=== PATIENT | female | born 1985 | race Hispanic/Latino ===

== ENCOUNTER → 2021-06-10 10:12 | Outpatient (CLI) | payer OTHER, SELFPAY ==
[2021-06-10 12:51] LABS: HCG Quantitative /Beta subunit 16652 mIU/mL
[2021-06-11 08:13] LABS: Varicella IgG Antibody 299 index (Immune >165)
== END ==
PROVIDERS: Obstetrics & Gynecology; Referring Provider Obstetrics & Gynecology; Visit Provider Obstetrics & Gynecology
DX: O20.9 Hemorrhage in early pregnancy, unspecified (principal)
CPT/HCPCS: 36415; 84702; 86787

== ENCOUNTER → 2021-06-15 14:16 | Outpatient (CLI) | payer OTHER, SELFPAY ==
--- NOTE | 2021-06-15 14:17 | DI.US.S_ITS ---
PROCEDURE: US OB <= 14 WEEKS FETUS INDICATIONS: VIABILITY DATING OUTSIDE/PRIOR DATING DATA: Last menstrual period (LMP): April 23, 2021 LMP-based estimated date of delivery (MARY): January 28, 2022 First dating scan (date and location): June 25, 2021 Estimated date of delivery (MARY) from first dating scan: February 04, 2021 The calculations are made using the ultrasound MARY of February 04, 2021 TECHNIQUE: Real-time scanning was performed of the fetus and maternal pelvic organs, with image documentation. Endovaginal scanning was also performed to better visualize the fetus and maternal ovaries. COMPARISON: None. FINDINGS: Embryo: Single living intrauterine identified. The intrauterine is in the anterior margin of the lower uterine segment at scar. The is surrounded by only 2 millimeters of myometrium. Findings compatible with ectopic . pole measures 0.7 centimeters corresponding to ultrasound age of 6 weeks 4 days. Yolk sac is identified. Heart rate: 104 Maternal organs: Ovaries not well seen and cannot be evaluated. IMPRESSION: 1. Ectopic involving scar in the lower uterine segment. 2. Ordering physician Dr. Harris was not in his office at the time of this interpretation. Findings discussed with Marlys Velasco RN in the office of Dr. Gerardo Harris. Ms.Rath Velasco reported an understanding of the the urgent nature of the findings and will contact the office on-call poultry eviscerator with results. Dictated by: Iram Clark MD, PhD on 06/15/2021 at 14:53 Approved by: Iram Clark MD, PhD on 06/15/2021 at 15:07
== END ==
PROVIDERS: PCP Internal Medicine; Referring Provider Obstetrics & Gynecology; Visit Provider Obstetrics & Gynecology
DX: O00.80 Other ectopic pregnancy without intrauterine pregnancy
CPT/HCPCS: 76801; 76817

== ENCOUNTER → 2021-06-16 16:20 | Outpatient (CLI) | payer OTHER, SELFPAY ==
[2021-06-16 17:42] LABS: HCG Quantitative /Beta subunit 30624 mIU/mL
== END ==
PROVIDERS: PCP Internal Medicine; Referring Provider Obstetrics & Gynecology; Visit Provider Obstetrics & Gynecology
DX: O00.90 Unspecified ectopic pregnancy without intrauterine pregnancy (principal)
CPT/HCPCS: 36415; 84702

== ENCOUNTER → 2021-07-16 12:03 | Outpatient (CLI) | payer OTHER, SELFPAY ==
[2021-07-16 13:44] LABS: HCG Quantitative /Beta subunit 5.3 mIU/mL
== END ==
PROVIDERS: PCP Internal Medicine; Referring Provider Obstetrics & Gynecology; Visit Provider Obstetrics & Gynecology
DX: O00.90 Unspecified ectopic pregnancy without intrauterine pregnancy (principal)
CPT/HCPCS: 36415; 84702

== ENCOUNTER → 2021-11-20 15:00 | Outpatient (CLI) | payer OTHER, SELFPAY ==
[2021-11-20 17:05] LABS: Follicle Stimulating Hormone 6.52 mIU/mL; Luteinizing Hormone 4.97 mIU/mL
[2021-11-20 17:12] LABS: Prolactin 12.8 ng/mL (3.0-18.6)
[2021-11-20 17:35] LABS: TSH w/ Reflex to FT4 1.64 uIU/mL (0.47-4.68)
== END ==
PROVIDERS: PCP Internal Medicine; Referring Provider Obstetrics & Gynecology; Visit Provider Obstetrics & Gynecology
DX: N97.0 Female infertility associated with anovulation (principal)
CPT/HCPCS: 36415; 83001; 83002; 84146; 84443

== ENCOUNTER → 2022-01-28 17:36 | Outpatient (CLI) | payer OTHER, SELFPAY ==
[2022-01-28 18:25] LABS: HCG Quantitative /Beta subunit < 2.4 mIU/mL
== END ==
PROVIDERS: PCP Internal Medicine; Referring Provider Obstetrics & Gynecology; Visit Provider Obstetrics & Gynecology
DX: O20.9 Hemorrhage in early pregnancy, unspecified (principal); Z3A.01 Less than 8 weeks gestation of pregnancy
CPT/HCPCS: 36415; 84702; 86900; 86901

== ENCOUNTER → 2022-01-30 09:46 | Outpatient (CLI) | payer OTHER, SELFPAY ==
[2022-01-30 10:47] LABS: HCG Quantitative /Beta subunit < 2.4 mIU/mL
== END ==
PROVIDERS: PCP Internal Medicine; Referring Provider Obstetrics & Gynecology; Visit Provider Obstetrics & Gynecology
DX: O20.9 Hemorrhage in early pregnancy, unspecified (principal)
CPT/HCPCS: 36415; 84702

== ENCOUNTER → 2022-03-08 11:50 | Outpatient (CLI) | payer OTHER, SELFPAY ==
[2022-03-08 16:15] LABS: Follicle Stimulating Hormone 6.17 mIU/mL; Progesterone, Total 0.74 ng/mL
[2022-03-15 03:57] LABS: Anti Mullerian Hormone 2.75 ng/mL (.)
== END ==
PROVIDERS: PCP Internal Medicine; Referring Provider Obstetrics & Gynecology; Visit Provider Obstetrics & Gynecology
DX: N97.0 Female infertility associated with anovulation (principal)
CPT/HCPCS: 36415; 82397; 83001; 84144

== ENCOUNTER → 2022-03-29 14:58 | Outpatient (CLI) | payer OTHER, SELFPAY ==
[2022-03-29 17:37] LABS: Progesterone, Total 9.37 ng/mL
== END ==
PROVIDERS: PCP Internal Medicine; Referring Provider Obstetrics & Gynecology; Visit Provider Obstetrics & Gynecology
DX: N97.0 Female infertility associated with anovulation (principal)
CPT/HCPCS: 36415; 84144

== ENCOUNTER → 2022-06-24 16:22 | Outpatient (CLI) | payer OTHER, SELFPAY ==
[2022-06-24 18:20] LABS: HCG Quantitative /Beta subunit 14296 mIU/mL
== END ==
PROVIDERS: PCP Internal Medicine; Referring Provider Obstetrics & Gynecology; Visit Provider Obstetrics & Gynecology
DX: N97.0 Female infertility associated with anovulation (principal)
CPT/HCPCS: 36415; 84144; 84702

== ENCOUNTER → 2022-07-02 13:40 | Outpatient (CLI) | payer OTHER, SELFPAY | PROVIDERS: PCP Internal Medicine; Referring Provider Obstetrics & Gynecology; Visit Provider Obstetrics & Gynecology | DX: O09.299 Supervision of pregnancy with other poor reproductive or obstetric history, unspecified trimester (principal) | CPT/HCPCS: 36415; 84144 ==

== ENCOUNTER → 2022-07-06 08:36 | Outpatient (CLI) | payer OTHER, SELFPAY ==
--- NOTE | 2022-07-06 08:37 | DI.US.S_ITS ---
PROCEDURE: US OB <= 14 WEEKS FETUS INDICATIONS: History of early loss OUTSIDE/PRIOR DATING DATA: Last menstrual period (LMP): Unknown. LMP-based estimated date of delivery (MARY): Unknown First dating scan (date and location): 06/29/2022 Estimated date of delivery (MARY) from first dating scan: 02/23/2023. TECHNIQUE: Real-time scanning was performed of the fetus and maternal pelvic organs, with image documentation. COMPARISON: [facility], , OB <= 14 WEEKS FETUS, 06/15/2021, 14:27. FINDINGS: Embryo: Very retroverted uterus is noted on the current study with a single intrauterine gestational sac and possible yolk sac seen. No pole is identified. Gestational sac measures 1.5 cm with estimated gestational age of 6 weeks, 2 days. Maternal organs: Right ovary is visualized and contains a possible corpus luteal cyst. Left ovary is not visualized on this study. IMPRESSION: 1. Limited evaluation due to retroverted uterus. Possible intrauterine gestational sac and yolk sac as above. pole or cardiac activity is not detected on this study. Clinical correlation and sonographic follow-up is recommended for evaluation of viability. We strive to produce accurate, complete, and clear reports of imaging services. To assist us in improving patient care, this report was composed using standard report templates and voice recognition software. Therefore, it may contain abnormal punctuation, insertions and/or omissions. Occasional wrong-word or sound-alike substitutions may occur. Though we review the report and make efforts to correct it, we do recommend that the report be read carefully in proper context to recognize any text inaccuracies. Dictated by: Bud Duarte M.D. on 07/06/2022 at 10:01 Approved by: Bud Duarte M.D. on 07/06/2022 at 10:06
== END ==
PROVIDERS: PCP Internal Medicine; Referring Provider Obstetrics & Gynecology; Visit Provider Obstetrics & Gynecology
DX: O09.291 Supervision of pregnancy with other poor reproductive or obstetric history, first trimester (principal); Z3A.01 Less than 8 weeks gestation of pregnancy
CPT/HCPCS: 76801; 76817

== ENCOUNTER → 2022-07-16 10:23 | Outpatient (CLI) | payer OTHER, SELFPAY ==
[2022-07-16 12:56] LABS: HCG Quantitative /Beta subunit 19244 mIU/mL
== END ==
PROVIDERS: PCP Internal Medicine; Referring Provider Obstetrics & Gynecology; Visit Provider Obstetrics & Gynecology
DX: O09.299 Supervision of pregnancy with other poor reproductive or obstetric history, unspecified trimester (principal)
CPT/HCPCS: 36415; 84702

== ENCOUNTER → 2022-07-19 16:25 | Outpatient (CLI) | payer OTHER, SELFPAY ==
[2022-07-19 19:12] LABS: HCG Quantitative /Beta subunit 14573 mIU/mL
== END ==
PROVIDERS: PCP Internal Medicine; Referring Provider Obstetrics & Gynecology; Visit Provider Obstetrics & Gynecology
DX: O09.299 Supervision of pregnancy with other poor reproductive or obstetric history, unspecified trimester (principal); O20.9 Hemorrhage in early pregnancy, unspecified; Z3A.00 Weeks of gestation of pregnancy not specified
CPT/HCPCS: 36415; 84702

== ENCOUNTER → 2022-07-20 06:40 | Outpatient (CLI) | payer OTHER, SELFPAY ==
--- NOTE | 2022-07-20 06:41 | DI.US.S_ITS ---
PROCEDURE: US OB <= 14 WEEKS FETUS INDICATIONS: check viability OUTSIDE/PRIOR DATING DATA: Last menstrual period (LMP): Unknown. LMP-based estimated date of delivery (MARY): Unknown. First dating scan (date and location): 06/29/2022. Estimated date of delivery (MARY) from first dating scan: 02/23/2023. The calculations are made using the working MARY of a 1623. TECHNIQUE: Real-time scanning was performed of the fetus and maternal pelvic organs, with image documentation. Endovaginal scanning was also performed to better visualize the fetus and maternal ovaries. COMPARISON: [facility], , OB <= 14 WEEKS FETUS, 07/06/2022, 8:49. FINDINGS: Embryo: Single intrauterine gestational sac is seen . No definite pole or yolk sac is seen. Decidual sac measures 1.6 cm in length with estimated gestational age based on current study of 6 weeks, 3 days. Estimated gestational age based on previous study 8 weeks, 6 days. No cardiac activity is detected. Maternal organs: Possible corpus luteum is noted in right ovary unchanged from prior study. Left ovary is within normal limits. IMPRESSION: 1. Single intrauterine gestational sac without pole or cardiac activity. Finding is concerning for blighted ovum. Correlation with serial beta HCG level is recommended. 2. Possible corpus luteum within right ovary. We strive to produce accurate, complete, and clear reports of imaging services. To assist us in improving patient care, this report was composed using standard report templates and voice recognition software. Therefore, it may contain abnormal punctuation, insertions and/or omissions. Occasional wrong-word or sound-alike substitutions may occur. Though we review the report and make efforts to correct it, we do recommend that the report be read carefully in proper context to recognize any text inaccuracies. Dictated by: Bud Duarte M.D. on 07/20/2022 at 11:22 Approved by: Bud Duarte M.D. on 07/20/2022 at 11:24
== END ==
PROVIDERS: PCP Internal Medicine; Referring Provider Obstetrics & Gynecology; Visit Provider Obstetrics & Gynecology
DX: O36.80X0 Pregnancy with inconclusive fetal viability, not applicable or unspecified (principal); O09.299 Supervision of pregnancy with other poor reproductive or obstetric history, unspecified trimester; N97.0 Female infertility associated with anovulation; O26.20 Pregnancy care for patient with recurrent pregnancy loss, unspecified trimester
CPT/HCPCS: 76801; 76817

== ENCOUNTER → 2023-01-31 15:04 | Outpatient (CLI) | payer OTHER, SELFPAY ==
[2023-01-31 16:23] LABS: HCG Quantitative /Beta subunit 14970 mIU/mL
== END ==
PROVIDERS: PCP Internal Medicine; Referring Provider Obstetrics & Gynecology; Visit Provider Obstetrics & Gynecology
DX: O09.299 Supervision of pregnancy with other poor reproductive or obstetric history, unspecified trimester (principal); N91.2 Amenorrhea, unspecified
CPT/HCPCS: 36415; 84702

== ENCOUNTER → 2023-02-02 11:22 | Outpatient (CLI) | payer OTHER, SELFPAY | PROVIDERS: PCP Internal Medicine; Referring Provider Obstetrics & Gynecology; Visit Provider Obstetrics & Gynecology | DX: N91.2 Amenorrhea, unspecified (principal); O09.299 Supervision of pregnancy with other poor reproductive or obstetric history, unspecified trimester | CPT/HCPCS: 36415; 84702 ==

== ENCOUNTER → 2023-02-16 12:05 | Outpatient (CLI) | payer OTHER, SELFPAY ==
--- NOTE | 2023-02-16 12:05 | DI.US.S_ITS ---
PROCEDURE: US OB <= 14 WEEKS FETUS INDICATIONS: DATES OUTSIDE/PRIOR DATING DATA: Last menstrual period (LMP): 12/12/2022 LMP-based estimated date of delivery (MARY): 09/18/2023. First dating scan (date and location): 02/16/2023, . Estimated date of delivery (MARY) from first dating scan: 10/05/2023. TECHNIQUE: Real-time scanning was performed of the fetus and maternal pelvic organs, with image documentation. Endovaginal scanning was also performed to better visualize the fetus and maternal ovaries. COMPARISON: [facility], OB <= 14 WEEKS FETUS, 07/20/2022, 7:04. FINDINGS: Embryo: There is a single intrauterine gestation in with visible yolk sac. [place]-rump length is 0.98 cm corresponding to an estimated gestational age of 7 weeks, 0 days. Heart rate: 168 BPM Maternal organs: Bilateral ovaries are normal. IMPRESSION: Single intrauterine gestation with crown rump length of 0.98 cm corresponding to an estimated gestational age of 7 weeks, 0 days, which is discordant with provided clinical dating based on LMP. We strive to produce accurate, complete, and clear reports of imaging services. To assist us in improving patient care, this report was composed using standard report templates and voice recognition software. Therefore, it may contain abnormal punctuation, insertions and/or omissions. Occasional wrong-word or sound-alike substitutions may occur. Though we review the report and make efforts to correct it, we do recommend that the report be read carefully in proper context to recognize any text inaccuracies. Measurement variability in dating: +/- 4 weeks by LMP, +/- 7 days by mean sac diameter (use before 6 weeks gestation if crown-rump length not able to be measured), +/- 5 days by crown-rump length (up to 8 weeks 6 days gestation), +/- 7 days by crown-rump length (up to 13 weeks 6 days gestation). Approved by: Olamide Tapia M.D. on 02/16/2023 at 22:56
== END ==
PROVIDERS: PCP Internal Medicine; Referring Provider Obstetrics & Gynecology; Visit Provider Obstetrics & Gynecology
DX: Z34.81 Encounter for supervision of other normal pregnancy, first trimester (principal); Z3A.01 Less than 8 weeks gestation of pregnancy
CPT/HCPCS: 76801; 76817

== ENCOUNTER → 2023-03-08 15:11 | Outpatient (CLI) | payer OTHER, SELFPAY ==
[2023-03-08 23:45] LABS: Urine N gonorrhoeae NOT DETECTED
[2023-03-08 23:51] LABS: Urine Chlamydia NOT DETECTED
== END ==
PROVIDERS: PCP Internal Medicine; Visit Provider Obstetrics & Gynecology
DX: Z34.81 Encounter for supervision of other normal pregnancy, first trimester (principal); Z3A.12 12 weeks gestation of pregnancy
CPT/HCPCS: 87491; 87591

== ENCOUNTER → 2023-03-08 15:59 | Outpatient (CLI) | payer OTHER, SELFPAY ==
[2023-03-08 16:59] LABS: Add Manual Diff / Slide Review NO; Basophils Absolute Auto 0 /uL (0-100); Basophils Percent Auto 0.4 % (0-2); Eosinophils Absolute Auto 200 /uL (0-450); Eosinophils Percent Auto 1.8 % (2-4); Hematocrit 34.9 % (36-46); Lymphocytes Absolute Auto 2400 /uL (1100-4500); Mean Corpuscular HGB Conc 34.5 % (30-36); Mean Corpuscular Hemoglobin 30.9 PG (26-34); Mean Corpuscular Volume 89.5 fL (80-100); Monocytes Absolute Auto 600 /uL (0-900); Monocytes Percent Auto 6.8 % (3-14); Neutrophils Absolute Auto 6200 /uL (1500-7000); Platelet Count 330 X10^3/uL (150-400); Red Cell Distribution Width 14.4 % (11.6-14.8); White Blood Cell Count 9.4 X10^3/uL (4.5-11.0)
[2023-03-09 09:01] LABS: RPR Screen Non Reactive (Non Reactive)
[2023-03-09 13:39] LABS: Varicella IgG Antibody 2162 index (Immune >165)
[2023-03-10 18:31] LABS: HIV 1 & 2 Ab/Ag 4th Gen Combo NEGATIVE (NEGATIVE); Hep C Virus Ab w/Reflex Quant REACTIVE s/c (NEGATIVE); Hepatitis B Surface Antigen NEGATIVE s/c (NEGATIVE); Rubella Antibody IgG 5.3 IU/mL (>15)
== END ==
PROVIDERS: PCP Internal Medicine; Referring Provider Obstetrics & Gynecology; Visit Provider Obstetrics & Gynecology
DX: Z3A.14 14 weeks gestation of pregnancy; Z34.82 Encounter for supervision of other normal pregnancy, second trimester
CPT/HCPCS: 80055; 86787; 86803; 86850; 86900; 86901; 87389; 87491; 87522; 87591

== ENCOUNTER → 2023-03-29 16:16 | Outpatient (CLI) | payer OTHER, SELFPAY ==
[2023-03-31 16:56] LABS: Hep C Virus Ab w/Reflex Quant REACTIVE s/c (NEGATIVE)
== END ==
PROVIDERS: PCP Internal Medicine; Referring Provider Obstetrics & Gynecology; Visit Provider Obstetrics & Gynecology
DX: R76.8 Other specified abnormal immunological findings in serum (principal); Z3A.09 9 weeks gestation of pregnancy
CPT/HCPCS: 36415; 86803

== ENCOUNTER → 2023-05-03 16:51 | Outpatient (CLI) | payer OTHER, SELFPAY ==
[2023-05-05 22:29] LABS: AFP, Serum 40.3 ng/mL (.); Estriol, Free 2.06 ng/mL (.); Inhibin A, MoM 0.79 (.); Maternal Ethnicity Other (.); Maternal Weight 173 lbs (.); Number of Fetuses No (.); OSBR Risk 1 IN 10000 (.); Results Report (.); Test Results *Screen Negative* (.); hCG, MoM 0.41 (.); hCG, Serum 11878 mIU/mL (.)
[2023-05-06 09:35] LABS: AFP PDF SCANNED
== END ==
PROVIDERS: PCP Internal Medicine; Referring Provider Obstetrics & Gynecology; Visit Provider Obstetrics & Gynecology
DX: Z34.82 Encounter for supervision of other normal pregnancy, second trimester (principal); R76.8 Other specified abnormal immunological findings in serum; Z3A.17 17 weeks gestation of pregnancy
CPT/HCPCS: 36415; 82105; 82677; 84702; 86336; 87522

== ENCOUNTER → 2023-05-16 16:08 | Outpatient (CLI) | payer OTHER, SELFPAY ==
--- NOTE | 2023-05-16 16:09 | DI.US.S_ITS ---
PROCEDURE: US OB >= 14 WEEKS FETUS INDICATIONS: ANATOMY OUTSIDE/PRIOR DATING DATA: Last menstrual period (LMP): 12/12/2022. LMP-based estimated date of delivery (MARY): 09/18/2023. First dating scan (date and location): 02/16/2023. Estimated date of delivery (MARY) from first dating scan: 10/05/2023. The calculations are made using the ultrasound MARY of 10/05/2023. TECHNIQUE: Real-time scanning was performed of the fetus, with image documentation and biometric measurements. Endovaginal scanning: Not performed COMPARISON: None. FINDINGS: General: A single living intrauterine gestation is present. Presentation: Breech. Placenta: Placental position is anterior , without previa. Amniotic fluid index: 16.4 cm, normal range is 5-24 cm. Single deepest vertical pocket is 5.1 cm. heart rate: 150 beats per minute. Maternal cervical canal: 5.3 cm long. Normal lower limit is 2.5 cm. biometrics: Biparietal diameter: 5.1 cm, 21 weeks 3 days Head circumference: 18.3 cm, 20 weeks 5 days Abdominal circumference: 16.6 cm, 21 weeks 5 days Femur length: 3.5 cm, 21 weeks 1 day Clinically estimated gestational age: 19 weeks 5 days Composite gestational age from present scan: 21 weeks 2 days Estimated weight and percentile: 416 g Anatomic survey: Neuro: Ventricles are non-dilated at less than 10 mm. Cisterna magna is normal at 3-11 mm. Cerebellum is normal in size and morphology. Nuchal skin fold: Normal at less than 6 mm between 14-21 weeks gestational age. Face: Nose and lips, facial profile are normal. Spine: No evidence for spina bifida. Heart: 4-chambered heart is present, with normal ventricular outflow tracts. Diaphragm: Diaphragm is intact. Stomach: Left-sided stomach is present. Kidneys: No hydronephrosis. Normal is less than 5 mm in 2nd trimester, less than 7 mm in 3rd trimester. Cord: 3-vessel cord has orthotopic insertion. Bladder: Normal in size. Extremities: All 4 extremities identified. IMPRESSION: 1. Single live intrauterine dating 21 weeks and 2 days. 2. Normal anatomic survey. We strive to produce accurate, complete, and clear reports of imaging services. To assist us in improving patient care, this report was composed using standard report templates and voice recognition software. Therefore, it may contain abnormal punctuation, insertions and/or omissions. Occasional wrong-word or sound-alike substitutions may occur. Though we review the report and make efforts to correct it, we do recommend that the report be read carefully in proper context to recognize any text inaccuracies. Dictated by: Kodi Agudelo M.D. on 05/17/2023 at 12:42 Approved by: Kodi Agudelo M.D. on 05/17/2023 at 12:44
== END ==
PROVIDERS: PCP Internal Medicine; Referring Provider Obstetrics & Gynecology; Visit Provider Obstetrics & Gynecology
DX: Z34.82 Encounter for supervision of other normal pregnancy, second trimester (principal); Z3A.21 21 weeks gestation of pregnancy
CPT/HCPCS: 76811

== ENCOUNTER → 2023-06-25 08:43 | Outpatient (CLI) | payer OTHER, SELFPAY ==
[2023-06-25 10:15] LABS: Hematocrit 33.2 % (36-46); Hemoglobin 11.2 g/dL (12.0-16.0)
[2023-06-25 10:27] LABS: GTT (PREG) 1 Hour PP 50gm Dose 204 mg/dL (76-139)
== END ==
PROVIDERS: PCP Internal Medicine; Referring Provider Obstetrics & Gynecology; Visit Provider Obstetrics & Gynecology
DX: Z34.82 Encounter for supervision of other normal pregnancy, second trimester (principal); Z3A.26 26 weeks gestation of pregnancy
CPT/HCPCS: 36415; 82950; 85014; 85018

== ENCOUNTER → 2023-07-01 08:02 | Outpatient (CLI) | payer OTHER, SELFPAY ==
[2023-07-01 09:00] LABS: Glucose Fasting Gestational 95 mg/dL (76-95)
[2023-07-01 10:05] LABS: Glucose 1 Hour Gest 158 mg/dL (76-180)
[2023-07-01 10:53] LABS: Glucose 2 Hour Gest 166 mg/dL (76-155)
[2023-07-01 11:26] LABS: Glucose Tol Interp,Gestational INTERPRETATION
[2023-07-01 12:08] LABS: Glucose 3 Hour Gest 149 mg/dL (76-140)
== END ==
PROVIDERS: PCP Internal Medicine; Referring Provider Obstetrics & Gynecology; Visit Provider Obstetrics & Gynecology
DX: O99.810 Abnormal glucose complicating pregnancy (principal)
CPT/HCPCS: 36415; 82951; 82952

== ENCOUNTER → 2023-07-08 09:32 | Outpatient (CLI) | payer OTHER, SELFPAY ==
--- NOTE | 2023-07-08 12:15 | DIAB.GDA ---
Initial Gestational Diabetes Assessment Name: Nora Alvarado Date: 07/08/23 Time: 945-11a Dx: Gestational Diabetes Provider: Steven MARY: 10/05/23 Weeks: 27 Nora presents for initial GDM visit. Reports maternal FH of T2DM. Denies PMH of Dm, PCOS, or preDm. Reports feeling very nervous about the diagnosis, BG monitoring, and potential for medication. 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 After IgE testing, cut out some wheat and dairy. Diet recall indicates low protein intake with some meals/snacks and some high CHO intake with beverages and rice portions. States she tries to keep dinner portions small due to reflux at bedtime. Requesting a letter to provide to workplace expressing the medical need for her to have time to check BG 4x per day. Has questions regarding medication options and need for meds with GDM. Diet Recall: 8830a: decaf coffee, starbucks white mocha, chilango cracker OR starbucks oatmeal with sides 830-9: trail mix 1230p: salad with cheese and veg, small bread stick, +/- apple 230p: apple and pb OR cookie 5-530p: soup OR pasta x 0.5c with meat and veg OR rice x 1-1.5c with ceviche and peas/carrots, eating out teriyaki time snacking until 9-10p: chips with hot sauce and stebbins, fruit snacks x 2, rice crispy bar, candy Beverages: 64x1-1.5 water, club soda and sf flavoring, coffee, apple juice, oj to help with iron absorption Anthropometrics: Ht: 5' Wt: 183# last OB 06/2023 Prepregnancy wt: 160# 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 Endorses 10,000 steps min daily. Self-Monitoring Blood Glucose: Brought her meter today for instruction. Provided a return demonstration successfully with BG of 89 fasting. Diabetes Medications: None Pertinent Labs: screen 204 H; OGTT 95, 158, 166 H, 149H Nutrition Rx: Carbohydrates: Meal: 45-g lunch and 45-60g dinner; 30g breakfast Snack: 15-30g Nutrition Diagnosis: Altered nutrition related lab value r/t GDM dx aeb recent OGTT Excessive CHO intake r/t nutrition knowledge deficit aeb diet recall and new dx GDM Inconsistent protein intake r/t nutrition knowledge deficit aeb diet recall Intervention: This participant was very receptive. Provided appropriate educational handouts. Discussed the following topics: GDM pathophysiology and impact of hyperglycemia on mom and baby Risk for T2DM for mom and baby in the future Ways to reduce risk T2DM Plate Method, meal timing, carb counting, pairing macronutrients and spreading out CHO for better BG management Blood glucose goals (FBG: <95 and 1 hour <140 mg/dL); importance of checking 4x per day (FBG and pc) Impact of macronutrients on blood glucose Recommended servings for carbohydrates at meals and snacks Brainstormed appropriate meal plan based on her food preferences Discussed medications for GDM and when that may or may not be appropriate Provided letter for work for her to check BG 4 x per day Role of physical activity and following provider guidelines for safety Goals: Add protein to meals/snacks- new Check BG 4 x per day- new Avoid sugar beverages/ choose small options / choose sf options- new Follow-up: DOUGIE LOPEZ follow-up in one week via phone or messaging and 2 weeks for 1:1 follow-up Ayala Seals RDN, JESSICA Certified Diabetes Care and Customer Consultant T: [phone] F: [phone] [email or web address] Thank you for this referral
== END ==
LOC: DIET 09:32
PROVIDERS: PCP Internal Medicine; Referring Provider Obstetrics & Gynecology; Visit Provider Obstetrics & Gynecology
DX: O24.419 Gestational diabetes mellitus in pregnancy, unspecified control (principal); Z3A.27 27 weeks gestation of pregnancy; Z71.3 Dietary counseling and surveillance
CPT/HCPCS: 97802

== ENCOUNTER → 2023-07-20 15:12 | Outpatient (CLI) | payer OTHER, SELFPAY ==
--- NOTE | 2023-07-20 17:11 | DIAB.GDFU ---
Addendum entered by Ayala Seals 08/02/23 09:46: Phone call: Pt covid +. Started 500mg Metformin BID. Plans to increase to 1000mg BID, but has not received Rx. Advised her to contact pharmacy and then OB prn. Reports limited appetite and loss of smell/taste. Limited mid day BG checks due to reduced PO. Does not want to start insulin. Encouraged her to eat adequately for her and baby. Discussed briefly insulin injection info to ease trepidation, though BG are markedly improved since starting low dose Metformin. FBG 73-90 (one reading of 111 this week). 3 elevated PP readings up to 190. All others in goal <140, but mostly just breakfast and dinner readings available. Enc continued BG checks, adequate PO, and to call RD prn with questions/concerns. F/u next week after OB. Original Note: Follow-up Gestational Diabetes Assessment Name: Nora Alvarado Date: 07/20/23 Time: 330-5p Dx: Gestational Diabetes Provider: Steven MARY: 10/05/23 Weeks: presents for follow-up GDM visit. Reports reducing sugar/carbs from diet. Endorses stress with relationship and work. Asks if stress can impact BG. Endorse some sleep disturbances consistent with discomfort in . No distinct correlations noted in sleep and her FBG. Endorses improved sleep hygiene with cutting off screens 30 min prior to bed, at the rec of OB. Also endorses some stress with feeling there was reduced movement. Reports h/o loss, which exacerbates worry for this per report. States she waited until the next day and felt baby moving. Stress management: no strategies in place just yet. Being with daughters helps. Venting to friend helps. Not wanting therapist resources at this time. Reduced juice intake. Avoiding intake after 8p. Avoiding sweetened coffee beverages. Some elevated after dinner readings, one r/t cereal with milk portions. Given BG results over the last two weeks, may benefit from low dose dm medication. She tells me that this might make her feel less stressed about elevations. Elevations are a bit inconsistent. Will send results to OB. She plans to see OB next week 07/26. 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 Endorses less than 10,000 steps daily more recently due to some fatigue. Self-Monitoring Blood Glucose: Variable FBG with some above 95 over the last two weeks. Some elevations after meals with low protein, ie cereal. Date Pre Post Pre Post Pre Post 07/08 89 180 111 07/09 101 160 112 07/10 95 112 120 07/11 87 187 07/12 98 119 109 94 07/13 99 129 120 76 07/14 87 171 104 77 07/15 93 121 139 120 07/16 90 113 127 07/17 99 116 97 07/18 94 144 130 166 07/19 84 81 128 142 07/20 95 137 129 Diabetes Medications: None Pertinent Labs: screen 204 H; OGTT 95, 158, 166 H, 149H Nutrition Rx: Carbohydrates: Meal: 45-g lunch and 45-60g dinner; 30g breakfast Snack: 15-30g Nutrition Diagnosis: Altered nutrition related lab value r/t GDM dx aeb recent OGTT Excessive CHO intake r/t nutrition knowledge deficit aeb diet recall and new dx GDM Inconsistent protein intake r/t nutrition knowledge deficit aeb diet recall Intervention: This participant was very receptive. Provided appropriate educational handouts. Discussed the following topics: Recent blood sugar results and impact of food and hormones Review of macronutrient recommendations during Label reading review for net carbs Comparing cereals and milks Stress management and impact on health/bg Potential for medication especially as progresses with hormones pros/cons of dm meds Sleep and BG When feeling stressed about movement, call OB office Goals: Add protein to meals/snacks- met Check BG 4 x per day- met Avoid sugar beverages/ choose small options / choose sf options- met Try lower carb almond milk in cereal -new Practice stress management- new Contact OB if feeling stressed about movement- new Continue checking BG - new Follow-up: DOUGIE SWANSONES follow-up in two weeks. RD messaged OB with recent BG numbers to determine plan of action for management. Ayala Seals RDN, [facility] Certified Diabetes Care and Crossing Supervisor T: [phone] F: [phone] [email or web address] Thank you for this referral
== END ==
PROVIDERS: PCP Internal Medicine; Referring Provider Obstetrics & Gynecology; Visit Provider Obstetrics & Gynecology
DX: O24.419 Gestational diabetes mellitus in pregnancy, unspecified control (principal); Z3A.29 29 weeks gestation of pregnancy; Z71.3 Dietary counseling and surveillance
CPT/HCPCS: 97803

== ENCOUNTER → 2023-08-12 15:01 | Outpatient (CLI) | payer OTHER, SELFPAY ==
--- NOTE | 2023-08-26 16:05 | DIAB.GDFU ---
Addendum entered by Ayala Seals 08/26/23 16:14: Feeling early satiety. Sometimes feels shaky with low intake. Trying to incorporate snacks as discussed last visit. Heartburn also causing limiting po. Taking tums but not sure how much she can take. She will msg ob nurses about recs. Was accidentally taking 500mg Metformin BID. Last week increased to rx amt of 1000mg BID. Discussed higher protein smoothies and heartburn nutrition therapy. Follow-up prn. Original Note: Follow-up Gestational Diabetes Assessment Name: Nora Alvarado Date: 08/12/23 Time: 305-4p Dx: Gestational Diabetes Provider: Steven MARY: 10/05/23 Weeks: 32-33 Nora presents for GDM f/u. Reports improved mood and relations with since starting Sertraline. Limiting sugar intake prior to bed. Enjoying more overall per report. Plans to try . H/o of 2 mo max with , but feeling motivated. Diet recall indicates some long periods of fasting during the day. Continues with Metformin 1000mg BID. Plan for 09/22 c section. Reports difficulty keeping all appts. Requesting phone check in next visit. 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 Self-Monitoring Blood Glucose: Most FBG in goal over the last week with 1/7 elevated. 1 elevated pc reading after coffee and oatmeal. Diabetes Medications: 1000mg Metformin Pertinent Labs: screen 204 H; OGTT 95, 158, 166 H, 149H Nutrition Rx: Carbohydrates: Meal: 45-g lunch and 45-60g dinner; 30g breakfast Snack: 15-30g Nutrition Diagnosis: Altered nutrition related lab value r/t GDM dx aeb recent OGTT Excessive CHO intake r/t nutrition knowledge deficit aeb diet recall and new dx GDM Inconsistent protein intake r/t nutrition knowledge deficit aeb diet recall Intervention: This participant was very receptive. Provided appropriate educational handouts. Discussed the following topics: Recent blood sugar results and impact of food and hormones Review of macronutrient recommendations during Benefits, resources, and nutrition for recommendations for nutrition and physical activity recommendations for T2DM risk reduction OGTT at 6-12 weeks Checking blood sugars twice per week (goal: fasting <100 mg/dL and 2 hour pc <140 mg/dL) until 6 week check-up HgA1c q 1-3 years. Goals: Try lower carb almond milk in cereal -met Practice stress management- in progress Contact OB if feeling stressed about movement- continue Continue checking BG - met Add consistent paired HS snack- new Add 3p snack prn- new At 34 weeks send JESSICA BG log- new Follow-up: DOUGIE LOPEZ follow-up 3 weeks over phone for BG review. Ayala Seals RDN, [facility] Certified Diabetes Care and Carton Maker T: [phone] F: [phone] [email or web address] Thank you for this referral
== END ==
PROVIDERS: PCP Internal Medicine; Referring Provider Obstetrics & Gynecology; Visit Provider Obstetrics & Gynecology
DX: O24.415 Gestational diabetes mellitus in pregnancy, controlled by oral hypoglycemic drugs (principal); Z3A.32 32 weeks gestation of pregnancy; Z71.3 Dietary counseling and surveillance
CPT/HCPCS: 97803

== ENCOUNTER 2023-08-23 15:25 | Outpatient (CLI) | payer OTHER, SELFPAY | END 2023-08-23 16:25 | disposition home or self-care (01) | LOC: OB 08-29 06:47 | PROVIDERS: PCP Internal Medicine; Referring Provider Obstetrics & Gynecology; Visit Provider Obstetrics & Gynecology | DX: O24.415 Gestational diabetes mellitus in pregnancy, controlled by oral hypoglycemic drugs (principal); Z3A.33 33 weeks gestation of pregnancy | CPT/HCPCS: 59025; G0378; G0379 ==

== ENCOUNTER 2023-08-31 14:52 | Outpatient (CLI) | payer OTHER, SELFPAY | END 2023-08-31 15:50 | disposition home or self-care (01) | LOC: OB 09-01 10:26 | PROVIDERS: PCP Internal Medicine; Referring Provider Obstetrics & Gynecology; Visit Provider Obstetrics & Gynecology | DX: O24.415 Gestational diabetes mellitus in pregnancy, controlled by oral hypoglycemic drugs (principal); Z3A.35 35 weeks gestation of pregnancy | CPT/HCPCS: 59025; G0378; G0379 ==

== ENCOUNTER → 2023-09-06 15:22 | Outpatient (CLI) | payer OTHER, SELFPAY ==
[2023-09-07 15:46] LABS: Strep Grp B PCR NEG for Grp B Strep
== END ==
PROVIDERS: PCP Internal Medicine; Visit Provider Obstetrics & Gynecology
DX: Z34.83 Encounter for supervision of other normal pregnancy, third trimester (principal); Z3A.36 36 weeks gestation of pregnancy
CPT/HCPCS: 87653

== ENCOUNTER → 2023-09-06 16:03 | Outpatient (CLI) | payer OTHER, SELFPAY ==
--- NOTE | 2023-09-06 16:04 | DI.US.S_ITS ---
PROCEDURE: US OB LIMITED INDICATIONS: SIZE GREATER THAN DATES OUTSIDE/PRIOR DATING DATA: Last menstrual period (LMP): 12/12/2022. LMP-based estimated date of delivery (MARY): 09/18/2023. First dating scan (date and location): 02/16/2023. Estimated date of delivery (MARY) from first dating scan: 10/05/2023. The calculations are made using the ultrasound MARY of 10/05/2023. TECHNIQUE: Real-time scanning was performed of the fetus, with image documentation and biometric measurements. COMPARISON: [facility], OB >= 14 WEEKS FETUS, 05/16/2023, 17:17. [facility], OB <= 14 WEEKS FETUS, 02/16/2023, 12:25. FINDINGS: General: A single living intrauterine gestation is present. Presentation: Vertex. Placenta: Placental position is anterior , without previa. Amniotic fluid index: 16.5 cm, normal range is 5-24 cm. Single deepest vertical pocket is 5.7 cm. heart rate: 141 beats per minute. Maternal cervical canal: 6.9 cm long. Normal lower limit is 2.5 cm. biometrics: Biparietal diameter: 9 cm 36 weeks 3 days Head circumference: 32 cm 35 weeks 6 days Abdominal circumference: 31 cm 35 weeks 1 day Femur length: 7 cm 35 weeks 0 days Clinically estimated gestational age: 35 weeks 6 days Composite gestational age from present scan: 35 weeks 4 days Estimated weight and percentile: 2645 g 35th percentile Other: Not applicable. IMPRESSION: Single live intrauterine with ultrasound gestational age of 35 weeks 4 days. SIGRID measures 16.5 cm. We strive to produce accurate, complete, and clear reports of imaging services. To assist us in improving patient care, this report was composed using standard report templates and voice recognition software. Therefore, it may contain abnormal punctuation, insertions and/or omissions. Occasional wrong-word or sound-alike substitutions may occur. Though we review the report and make efforts to correct it, we do recommend that the report be read carefully in proper context to recognize any text inaccuracies. Dictated by: Adriana Michael M.D. on 09/07/2023 at 14:08 Approved by: Adriana Michael M.D. on 09/07/2023 at 14:10
== END ==
PROVIDERS: PCP Internal Medicine; Referring Provider Obstetrics & Gynecology; Visit Provider Obstetrics & Gynecology
DX: O26.843 Uterine size-date discrepancy, third trimester (principal); Z3A.35 35 weeks gestation of pregnancy
CPT/HCPCS: 76815; 87653

== ENCOUNTER 2023-09-13 15:07 | Outpatient (CLI) | payer OTHER, SELFPAY | END 2023-09-13 16:01 | disposition home or self-care (01) | LOC: LABOR 16:01 → OB 09-16 09:59 | PROVIDERS: PCP Internal Medicine; Referring Provider Obstetrics & Gynecology; Visit Provider Obstetrics & Gynecology | DX: O24.419 Gestational diabetes mellitus in pregnancy, unspecified control (principal); O09.523 Supervision of elderly multigravida, third trimester; Z3A.36 36 weeks gestation of pregnancy | CPT/HCPCS: 59025; G0378; G0379 ==

== ENCOUNTER 2023-09-20 10:24 | Outpatient (CLI) | payer OTHER, SELFPAY | END 2023-09-20 11:57 | disposition home or self-care (01) | LOC: LABOR 11:14 → OB 09-27 09:43 | PROVIDERS: PCP Internal Medicine; Referring Provider Obstetrics & Gynecology; Visit Provider Obstetrics & Gynecology | DX: O24.419 Gestational diabetes mellitus in pregnancy, unspecified control (principal); Z3A.37 37 weeks gestation of pregnancy | CPT/HCPCS: 59025; G0378; G0379 ==

== ENCOUNTER 2023-09-23 05:38 | Inpatient (IN) | payer OTHER, SELFPAY ==
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
[2023-09-23 06:44] VITALS: BP 131/79
[2023-09-23 06:48] LABS: Add Manual Diff / Slide Review NO; Basophils Absolute Auto 100 /uL (0-100); Basophils Percent Auto 0.6 % (0-2); Eosinophils Absolute Auto 200 /uL (0-450); Eosinophils Percent Auto 1.7 % (2-4); Hematocrit 36.1 % (36-46); Hemoglobin 12.1 g/dL (12.0-16.0); Lymphocytes Absolute Auto 2500 /uL (1100-4500); Lymphocytes Percent Auto 26.6 % (25-40); Mean Corpuscular HGB Conc 33.6 % (30-36); Mean Corpuscular Hemoglobin 31.1 PG (26-34); Mean Corpuscular Volume 92.7 fL (80-100); Monocytes Absolute Auto 700 /uL (0-900); Monocytes Percent Auto 7.1 % (3-14); Neutrophils Absolute Auto 6000 /uL (1500-7000); Platelet Count 224 X10^3/uL (150-400); Red Cell Distribution Width 14.8 % (11.6-14.8); White Blood Cell Count 9.3 X10^3/uL (4.5-11.0)
--- NOTE | 2023-09-23 07:39 | PM.PREOP ---
Pre-operative Note COVID-19 COVID-19 status: Not tested Interval Note History & Physical reviewed/Exam performed by Physician: Yes Changes to H&P: No
[2023-09-23] MEDS: CITRIC ACID/SODIUM CITRATE 15 ML SOLUTION 30 ML PO (07:47)
[2023-09-23] MEDS: CEFAZOLIN 2 GM/100 ML PREMIX 100 ML IV (08:30)
[2023-09-23] MEDS: ACETAMINOPHEN IV 1,000 MG/100 ML VIAL 400 MG IV (08:45)
--- NOTE | 2023-09-23 08:48 | SUR.OPER ---
Supine on padded OR bed, head on pillow, arms secured on padded arm boards at <90 degrees abduction, legs uncrossed, safety belt at thigh, tape over blanket over lower legs.
--- NOTE | 2023-09-23 09:11 | PM.AN.REGBLK ---
Regional Block Pre-procedure Procedure: Continuous Lumbar Epidural for L&D (NON-CONTINUOUS EPIDURAL for ability to redose during section with bilateral salpingectomies in parturient with history of traumatic section involving return of sensation and need to convert to GA during surgery) Attending OB provider: Shane Harris PMH/ROS narrative: . Gest DM, Asthma, GERD, obesity, . PSH/Anesthesia history narrative: See pre-anesthesia evaluation form. Exam narrative: See pre-anesthesia evaluation form. ASA Class: II Labs: Hct 36.1 % (36-46) 09/23/23 06:25 Plt Count 224 X10^3/uL (150-400) 09/23/23 06:25 Medications: Current Medications Generic Name Dose Route Start Last Admin Trade Name Freq PRN Reason Stop Dose Admin Butorphanol Tartrate 0.5 mg 09/23/23 09:09 Butorphanol 1 Mg/Ml Vial IV 09/24/23 09:09 Q3H PRN Pain, Moderate (4-6) Carboprost Tromethamine 250 mcg 09/22/23 21:51 Carboprost 250 Mcg/Ml Ampul IM Q90M PRN Bleeding Diphenhydramine HCl 25 mg 09/23/23 09:09 Diphenhydramine 50 Mg/Ml Vial IV 09/24/23 09:09 Q3HR PRN PRURITUS Lactated Ringer's 1,000 mls @ 42 mls/hr 09/22/23 16:45 Lactated Ringers IV CONT MARGOTH Lactated Ringer's 1,000 mls @ 100 mls/hr 09/22/23 22:00 Lactated Ringers IV CONT MARGOTH Oxytocin/Lactated Ringer's 30 unit in 500 mls @ 200 mls/hr 09/22/23 21:51 Oxytocin Premix IV CONT PRN Bleeding Protocol Tranexamic Acid 1,000 mg/ 100 mls @ 200 mls/hr 09/22/23 21:51 Sodium Chloride IV NOW PRN Bleeding Oxytocin/Lactated Ringer's 30 unit in 500 mls @ 200 mls/hr 09/22/23 21:51 Oxytocin Premix IV CONT PRN Bleeding Protocol Lidocaine HCl 20 ml 09/22/23 21:51 Lidocaine 1% 20 Ml INJ INTRA-OP PRN Post Delivery Methylergonovine Maleate 0.2 mg 09/22/23 21:51 Methylergonovine 0.2 Mg Tablet PO Q6HR PRN Heavy Bleeding Methylergonovine Maleate 0.2 mg 09/22/23 21:51 Methylergonovine 0.2 Mg/Ml Vial IM NOW PRN Bleeding Metoclopramide HCl 10 mg 09/23/23 09:09 Metoclopramide 10 Mg/2 Ml Inj IV 09/24/23 09:09 Q4H PRN Nausea Misoprostol 800 mcg 09/22/23 21:51 Misoprostol 200 Mcg Tablet WA NOW PRN Bleeding Misoprostol 400 mcg 09/22/23 21:51 Misoprostol 200 Mcg Tablet SL NOW PRN Bleeding Nalbuphine HCl 5 mg 09/23/23 09:09 Nalbuphine 20 Mg/Ml Ampul IV Q6H PRN Pruritus Naloxone HCl 0.2 mg 09/22/23 21:51 Naloxone 0.4 Mg/Ml Vial IV Q2MIN PRN Opiate Reversal Naloxone HCl 0.4 mg 09/23/23 09:09 Naloxone 0.4 Mg/Ml Vial IV Q2MIN PRN Opiate Reversal Ondansetron HCl 4 mg 09/23/23 13:00 Ondansetron 4 Mg/2 Ml Inj IV 09/23/23 17:01 Q4HR MARGOTH Oxytocin 10 unit 09/22/23 21:51 Oxytocin 10 Unit/Ml Vial IM NOW PRN Bleeding Oxytocin 10 unit 09/22/23 21:51 Oxytocin 10 Unit/Ml Vial IM NOW PRN Bleeding Allergies: Allergies Allergy/AdvReac Type Severity Reaction Status Date / Time codeine Allergy Intermediate Hives Verified 09/20/23 09:57 Milk Containing Products Allergy Intermediate Hives Verified 09/20/23 09:57 (Dairy) wheat AdvReac Intermediate Rash Verified 09/20/23 09:57 --: See anesthesia record for complete documentation of this CSE for section. Procedure Insertion date: 09/23/23 Insertion time: 08:15 Prep/Local: 1% lidocaine (3mL with chlorhexadine) Interspace: L2/L3 Patient position: sitting Needle: 18 gauge Hustead Loss of resistance with: saline ALLISON at (cm): 5 Catheter placed at SKIN (cm): 12 Catheter in SPACE (cm): 7 Sensory level: T4 Insertion: No CSF, No Blood, No Paresthesia with insertion, No Paresthesia with injection and No Test dose reaction Initial Medications TEST DOSE time: 08:17 TEST DOSE: 1.5% lidocaine with epinephrine 1:200k (mL): 3 Infusion Subsequent interventions: Bolus of 5mL 2% Lidocaine at 0935 for mild pain in RUQ of abdomen. Catheter removed with intact tip at 1018. Post-procedure Anesthesia date START: 09/23/23 Anesthesia time START: 07:59 Anesthesia date END: 09/23/23 Anesthesia time END: 10:18 Post-procedure Anesthesia Assessment: Yes CV function: HR/BP stable, Yes Resp function: RR/sat/airway adequate, Yes Post-op hydration adequate, Yes Pain control adequate, Yes Nausea & vomiting absent, Yes Temperature > 36 C and Yes Mental status appropriate
--- NOTE | 2023-09-23 09:18 | SUR.OPER ---
Baby boy born at 0906. Cord blood tubes x2 collected and placenta.
[2023-09-23] MEDS: LACTATED RINGERS 1,000 ML 999 ML IV (09:35)
--- NOTE | 2023-09-23 09:48 | SUR.OPER ---
Supine on Padded OR bed, head on pillow, safety belt at thigh, arms secured on padded arm boards at <90 degrees abduction. Bump under right buttock. Legs uncrossed with pillow under knees, gel pad to heels, tape over blanket to lower legs.
[2023-09-23 10:21] VITALS: BP 108/70; PULSE 78; RESP 18; TEMP 36.1; O2SAT 100
[2023-09-23 10:26] VITALS: BP 115/75; PULSE 73; RESP 11; O2SAT 100
--- NOTE | 2023-09-23 10:29 | P.OP_ITS ---
Operative Date/Time/Diagnoses Date of procedure: 09/23/23 Time of procedure: 08:20 Pre-op diagnosis: Intrauterine gestation, abbasi, 38+2 weeks EGA GDM Type A2 Previous sections Request for sterilization Post-op diagnosis: other (TALIA, extensive abdomino-pelvic adhesions) Procedure & Clinicians Procedure: Repeat section, low transverse cervical Same procedure as scheduled: No (Unable to perform bilateral salpingectomy due to intra-abdominal adhesions) Indications: Nora Alvarado is a 38 year old , MARY 10/05/2023 admitted now at 38+ 2 weeks gestational age for repeat section bilateral salpingectomy. Patient is course has been complicated by gestational diabetes for which she has been taking metformin 1000 mg p.o. b.i.d. which with dietary changes have resulted in normal blood sugars at home and normal growth of her infant. She also has a positive hepatitis-C antibody but RNA viral load is nondetectable. Early dating is solid and milestones are appropriate throughout. Patient is GBS is negative. Patient requests elective sterilization has been counseled regarding the permanent, irreversible nature as procedure along with a small risk of its failure.. Surgeon: Shane Harris Or First Assist Registered Nurse: Juli Avilez Reason for Or First Assist Registered Nurse: Or First Assist Registered Nurse required for the safe, effective, and timely completion of this surgery. Anesthesia Type: General Operative Notes Findings: Upon inferior into the abdominal cavity, dense adhesions involving the anterior surface of the uterus, including the lower uterine segment, are present and dissection through those adhesions was required to provide sufficient access to the lower uterine segment in order to safely deliver the . A small rent in the bladder muscularis was identified immediately adjacent to the hysterotomy site and closed during the course of the surgery. Closure Type: primary Specimen(s): cord blood Intraoperative meds administered: Ketorolac Applied: Catheter Estimated Blood Loss (mL): 800 Blood products transfused: none Procedure in detail: With her informed written consent, the patient was taken to the operating room and placed in the supine position for a repeat section procedure, for the indication(s) above. The abdomen was prepped and draped in the usual manner for section and a pre-surgical timeout was taken per [facility] OR protocol. Once effective anesthesia was confirmed, a 15 cm transverse Pfannenstiel incision was made in the skin and taken down through the subcutaneous tissues to the deep fascia. The deep fascia was incised transversely, the rectus abdominal eyes bluntly and sharply, and entry to the peritoneal cavity attempted. The serosa anterior surface of the uterus was encountered immediately and once the serosa was identified, attempts were made to identify tissue planes superficial that would permit access to the lower uterine segment and mobilization of the bladder. Sharp and blunt dissection was then carried out slowly so as to minimize risk of injury to surrounding structures. Once adequate access to the lower uterine segment was achieved with controlled dissection, a transverse hysterotomy incision of the lower uterine segment was then accomplished with the incision enlarged with digital traction both laterally and vertically. Amniotomy revealed [] fluid. The incision was again extended bilaterally with digital traction and the was delivered withour difficulty from the vertex presentation. The was vigorous and cord clamping delayed for 60 seconds. The placenta was delivered intact using gentle cord traction and fundal massage.The uterine cavity was then cleared of any clot/debris first with a sloppy wet lap tape followed by a dry lap tape. Ring forceps were then applied to the angles and the midline of the incised DEJA. A primary closure of the uterus was then accomplished with #1 CCGS in a running interlocking stitch in a single layer closure. No additional sutures were required to achieve complete hemostasis. 3-0 chromic in 2 layers were used to close the muscularis defect in the dome of the bladder. No peritoneal surfaces were available for closure of either the bladder flap or anterior peritoneum. Once pelvic hemostasis was assured, the rectus abdomini abdominal were reapproximated with 1. Chromic interrupted. The fascia closed with O double strand PDS in a running stitch initiated at both angles and tying separately near the midline. The subcutaneous tissues were reapproximated with 2-0 vicryl suture using inverted interrupted stitches. The skin edges were then brought together with 4-0 Monocryl in a subcuticular closure and the incision was reinforced with 1 Steri-Strips. An appropriate compression dressing was applied and the patient transferred to PACU for recovery and subsequent transfer to the Center for recuperation. Complications: none Baby 1: Infant Gender: Male Presentation: vertex Position: Left Occiput Posterior Placental Delivery Description: Spontaneous Cord Vessel Description: 3 Vessels score (1 min): 8 score (5 min): 9 weight: 6 lb 9.716 oz Post-operative Condition: stable Disposition: PACU Aftercare: routine postop
[2023-09-23 10:31] VITALS: BP 103/69; PULSE 76; RESP 12; O2SAT 100
--- NOTE | 2023-09-23 10:53 | SUR.PREOP ---
BS 103 1040. Kylee FRANCO aware
[2023-09-23] MEDS: ONDANSETRON 4 MG/2 ML INJ IV (13:04)
[2023-09-23] MEDS: ACETAMINOPHEN 325 MG TABLET 650 MG PO ×2 (13:21→21:50)
[2023-09-23] MEDS: KETOROLAC 30 MG/ML VIAL IV ×2 (15:33→21:49)
[2023-09-23] MEDS: METFORMIN XR 500 MG TABLET 1000 MG PO (21:11)
[2023-09-24] MEDS: KETOROLAC 30 MG/ML VIAL IV (03:41)
[2023-09-24] MEDS: ACETAMINOPHEN 325 MG TABLET 650 MG PO ×5 (03:42→23:15)
[2023-09-24 06:09] LABS: Add Manual Diff / Slide Review NO; Basophils Absolute Auto 0 /uL (0-100); Basophils Percent Auto 0.2 % (0-2); Eosinophils Absolute Auto 100 /uL (0-450); Eosinophils Percent Auto 0.8 % (2-4); Hemoglobin 9.4 g/dL (12.0-16.0); Lymphocytes Absolute Auto 2500 /uL (1100-4500); Lymphocytes Percent Auto 24.6 % (25-40); Mean Corpuscular HGB Conc 34.8 % (30-36); Mean Corpuscular Hemoglobin 31.9 PG (26-34); Mean Corpuscular Volume 91.6 fL (80-100); Monocytes Absolute Auto 700 /uL (0-900); Monocytes Percent Auto 7.3 % (3-14); Neutrophils Absolute Auto 6700 /uL (1500-7000); Neutrophils Percent Auto 67.1 % (50-75); Platelet Count 178 X10^3/uL (150-400); Red Blood Cell Count 2.95 X10^6/uL (4.0-5.2); Red Cell Distribution Width 14.4 % (11.6-14.8)
[2023-09-24] MEDS: DOCUSATE 100 MG CAPSULE PO (09:20)
[2023-09-24] MEDS: IBUPROFEN 600 MG TABLET PO ×3 (09:20→23:17)
[2023-09-24] MEDS: SERTRALINE 50 MG TABLET 25 MG PO (09:21)
[2023-09-24] MEDS: PRENATAL VIT,CALC/IRON/FOLIC 1 TABLET 1 TAB PO (09:21)
[2023-09-24 10:41] VITALS: BP 110/78; PULSE 97; RESP 18; TEMP 36.2
--- NOTE | 2023-09-24 12:29 | PM.OBPN.1 ---
Subjective - OB Subjective Patient comments: incisional pain, tolerating diet and other baby status: doing well and nursing well (for the most part, had difficulty latching overnight) [place] feeding status: exclusively breast feeding Narrative: 38-year-old Date Patient Seen: 09/24/23 Time Patient Seen: 12:30 Interval history: 38-year-old 8 para 5 postop day # 1 status post repeat low-transverse section. She is having some incisional pain especially after walking. going okay. Had some difficulty latching overnight. Has passed a few clots especially with ambulating. She has showered. She has voided without the catheter. She has tolerating a diet. She is passing flatus. Exam Vital Signs (past 8 hours): Oxygen Delivery Method Room Air Narrative Exam Narrative: Generally: Patient is sitting on the edge of the bed, no acute distress Lungs: CTA bilat CV: RRR Fundus: Firm just below U Incision: Clean dry and intact with bandage Extremities: Slight increased swelling of the left lower extremity with tenderness with flexion of the foot. Right lower extremity normal with negative Homans. No red streaks on either calf. Objective Labs 09/24/23 06:00 Labs: Laboratory Results - last 24 hr 09/24/23 06:00 WBC 10.0 RBC 2.95 L Hgb 9.4 L Hct 27.0 L MCV 91.6 MCH 31.9 MCHC 34.8 RDW 14.4 Plt Count 178 Neut % (Auto) 67.1 Lymph % (Auto) 24.6 L [place] % (Auto) 7.3 Eos % (Auto) 0.8 L Baso % (Auto) 0.2 Neut # (Auto) 6700 Lymph # (Auto) 2500 [place] # (Auto) 700 Eos # (Auto) 100 Baso # (Auto) 0 Assessment & Plan Plan day: 1 Comments: Duplex of the left lower extremity Probable discharge September 25, 2023 Time Spent With Patient Time: Total time spent is greater than 50% in coordination of care (as documented) at patient's floor/unit and/or counseling patient: Time with patient: 15-24 minutes
--- NOTE | 2023-09-24 12:34 | DI.US.S_ITS ---
PROCEDURE: US PERIPH VENOUS LOW EXTREM LT INDICATIONS: left lower ext swelling and pain with flexion TECHNIQUE: Real-time imaging, as well as color and pulse Doppler interrogation, were performed of the lower extremity deep veins from the inguinal ligament to the popliteal fossa, with documentation of the visualized calf veins. COMPARISON: None. FINDINGS: The common femoral, femoral, popliteal, and the visualized calf veins are normally compressible, and free of intraluminal thrombus. Color and pulse Doppler demonstrate normal phasic intraluminal flow. There is normal augmentation response to distal compression maneuver. IMPRESSION: No findings of lower extremity deep venous thrombosis. Approved by: Olamide Tpaia M.D. on 09/24/2023 at 13:37
[2023-09-24] MEDS: HYDROMORPHONE 2 MG TABLET PO ×2 (12:43→21:14)
[2023-09-25] MEDS: ACETAMINOPHEN 325 MG TABLET 650 MG PO ×2 (05:24→11:05)
[2023-09-25] MEDS: IBUPROFEN 600 MG TABLET PO ×2 (05:24→11:05)
[2023-09-25] MEDS: HYDROMORPHONE 2 MG TABLET PO (05:24)
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
[2023-09-25] MEDS: PRENATAL VIT,CALC/IRON/FOLIC 1 TABLET 1 TAB PO (09:17)
[2023-09-25] MEDS: SERTRALINE 50 MG TABLET 25 MG PO (09:17)
[2023-09-25] MEDS: MEASLES,MUMPS,RUBELLA VACC/PF 0.5 ML VIAL SUBCUT (09:18)
[2023-09-25] MEDS: DOCUSATE 100 MG CAPSULE PO (09:22)
== END 2023-09-25 11:28 | disposition home or self-care (01) | DRG 788 ==
PROVIDERS: Admitting Provider Obstetrics & Gynecology; PCP Internal Medicine; Referring Provider Obstetrics & Gynecology; Visit Provider Obstetrics & Gynecology
PROC: 10D00Z1 Extraction of Products of Conception, Low, Open Approach (ICD-10-PCS; CPT 59514; principal; 2023-09-23 07:45)
DX: O34.211 Maternal care for low transverse scar from previous cesarean delivery (principal); O24.425 Gestational diabetes mellitus in childbirth, controlled by oral hypoglycemic drugs; Z3A.38 38 weeks gestation of pregnancy; Z37.0 Single live birth; N73.6 Female pelvic peritoneal adhesions (postinfective); Z30.2 Encounter for sterilization
CPT/HCPCS: 36415; 59050; 59510; 59514; 85025; 86850; 86900; 86901; 93971; J0136; J0690; J1100; J1885; J2274; J2405

== ENCOUNTER 2023-11-24 06:35 | Day surgery (SDC) | payer OTHER, MEDICAID, SELFPAY ==
[2023-11-24 06:57] VITALS: BP 113/81; PULSE 85; RESP 16; TEMP 36.8; O2SAT 98; BMI 33.2
[2023-11-24] MEDS: LACTATED RINGERS 1,000 ML 84 ML IV ×2 (07:15→08:25)
--- NOTE | 2023-11-24 07:34 | PM.PREOP ---
Pre-operative Note COVID-19 COVID-19 status: Not tested Interval Note History & Physical reviewed/Exam performed by Physician: Yes Changes to H&P: No
[2023-11-24] MEDS: BUPIVACAINE 0.5% (PF) 30 ML, EPINEPHrine 0.15 MG INJ (08:25)
--- NOTE | 2023-11-24 08:31 | SUR.OPER ---
Lithotomy on padded OR bed, head on pillow, arms secured on padded arm boards at <90 degrees abduction. Legs secured in padded yellow fins stirrups.
--- NOTE | 2023-11-24 09:00 | PATH_ITS ---
[facility] Accession Number: [id number] No. of containers..01 Tissue . 01 Material submitted: . fallopian tube - BILATERAL FALLOPIAN TUBES . 01 Diagnosis: BILATERAL FALLOPIAN TUBES, BILATERAL SALPINGECTOMY: Complete cross section of bilateral fimbriated fallopian tube identified without any significant pathologic alterations. MRV 12/02/2023 1640 Local . 01 Electronically signed: . Africa Burris MD, Pathologist NPI- [id number] . 01 Gross description: . Received in formalin with two identifiers and bilateral fallopian tubes, are two unoriented fimbriated fallopian tubes measuring 6.5 x 0.4 cm and 5.6 x 0.8 cm respectively. Both tubes have violaceous, smooth serosa with cystic structures measuring up to 0.4 cm in greatest dimension filled with clear serous fluid. The lumen is stellate and unremarkable. Geospatial Engineer sections to include one-half of bisected fimbriae and cross-sections are submitted as follows: A1: Longer fallopian tube. A2: Scott fallopian tube. ([id number]) /MARITZA 11/30/2023 0944 Local . 01 Pathologist provided ICD-10: Z30.2 . 01 CPT . 410358 Specimen Comment: A courtesy copy of this report has been sent to [phone] Performed at: [address] [address], [place], [place] [id number] MD Juan Francisco Cid MD Phone: [phone]
[2023-11-24 09:14] VITALS: BP 104/64; PULSE 82; RESP 16; TEMP 36.3; O2SAT 98
--- NOTE | 2023-11-24 09:16 | PM.GYNOP.1 ---
Operative Date/Time/Diagnoses Date of procedure: 11/24/23 Time of procedure: 08:10 Pre-op diagnosis: Request for sterilization Abdominopelvic adhesions Post-op diagnosis: same Procedure & Clinicians Procedure: Procedures Operation Date: 11/24/23 07:45 Actual Procedure Side Surgeon p Laparoscopic Salpingectomy Bilateral Shane Harris MD Indications: Sagar return today for her 6 week checkup following repeat section as well as her preop visit for planned laparoscopic bilateral salpingectomy. Unfortunately her sterilization procedure could not be performed safely at the time of her repeat section due to extensive adhesions between the anterior aspect of the fundus and the abdominal wall. Accordingly we are now attempting/doing an interval sterilization by laparoscopy in hopes that her pelvic adhesions are not so extensive that the tubes can not be safely removed or obstructed in some other way so as to prevent future pregnancies. Surgeon: Shane Harris Anesthesia Type: General Operative Notes Findings: Extensive adhesions of the anterior uterine serosa to the anterior abdominal wall. Tubes and ovaries were visualized and are normal. Posterior cul-de-sac is uninvolved with the adhesions. The remainder of the abdomen and pelvis were normal to laparoscopic inspection. Closure Type: primary Specimen(s): left tube and right tube Estimated blood loss (mL): 5 Blood products transfused: none Procedure in detail: With the patient under satisfactory general anesthesia in the modified dorsal lithotomy position, the perineum, vagina, and abdomen were prepped and draped for IUD removal and laparoscopic bilateral salpingectomy. A pre-surgical safety time-out was then taken in accordance with [facility] Main OR protocols. [place] speculum was then introduced into the vaginal canal the cervix visualized. The anterior lip cervix was grasped with a single-tooth tenaculum and the endocervical canal dilated with Hegar dilators so as to be able to introduce a Zumi manipulator into the uterine cavity. Once the Zumi manipulator was secured within the endometrial cavity by inflation of the balloon, the speculum was removed along with the tenaculum. The umbilicus was then infiltrated with 0.5% Marcaine with epinephrine and 1 cm vertical incision was made in the inferior aspect of the umbilicus. Veress needle was used to insufflate the abdomen with carbon dioxide and once appropriately insufflated, 5 mm bladeless trocar and sleeve were inserted through the incision. Proper placement of the sleeve was confirmed with laparoscopic visualization and insufflation of the abdomen continued. A 2nd and 3rd 5 mm laparoscopic port were placed in the right and left mid quadrants using a similar technique and using a 3 puncture technique, the abdomen and pelvis were visualized with the findings as noted above. The distal aspect of the left fallopian tube was then grasped with a grasping forceps and using a Power Seal device, fimbria ovarica was coagulated and divided the dissection using the Power Seal continuing across the mesosalpinx to the cornua where the base fallopian tube was coagulated and divided. The left fallopian tube was then removed through one of the ports and submitted pathologic specimen. Attention was then turned to the right adnexa with distal tube grasped with a grasping forcep. The Power Seal device was then used to coagulate fimbria ovarica and the dissection was carried across the mesosalpinx to the cornua where the fallopian tube on the right side was amputated at the cornua following coagulation proximal tube the Power Seal device. Pelvis was inspected and there were no abnormalities noted following bilateral salpingectomy. The pneumoperitoneum was then vented and the ports removed from the abdominal wall. Port incisions were then closed with 4-0 Monocryl using inverted interrupted stitches and skin glue was applied. Appropriate dressings were then applied, patient was awakened, and transferred to the PACU for a period of observation after having tolerated the procedure well. Complications: none Post-operative Condition: stable Disposition: PACU
[2023-11-24 09:21] VITALS: BP 110/60; PULSE 66; RESP 16; O2SAT 97
[2023-11-24] MEDS: HYDROMORPHONE 2 MG TABLET PO (09:24)
[2023-11-24] MEDS: ONDANSETRON 4 MG/2 ML INJ IV (09:24)
[2023-11-24] MEDS: SCOPOLAMINE 1 PATCH TOP (09:24)
[2023-11-24] MEDS: ACETAMINOPHEN IV 1,000 MG/100 ML VIAL 400 MG IV (09:25)
[2023-11-24 09:29] VITALS: BP 108/62; BP 110/67; PULSE 66; PULSE 71; RESP 16; TEMP 36.2; O2SAT 97; O2SAT 98
[2023-11-24 09:41] VITALS: BP 110/60; PULSE 64; RESP 16; TEMP 35.9; O2SAT 98
[2023-11-24] MEDS: KETOROLAC 30 MG/ML VIAL IV (10:06)
[2023-11-24 10:15] VITALS: BP 112/73; PULSE 74; RESP 16; TEMP 37.1; O2SAT 96
== END 2023-11-24 10:30 | disposition home or self-care (01) ==
PROVIDERS: PCP Internal Medicine; Referring Provider Obstetrics & Gynecology; Visit Provider Obstetrics & Gynecology
PROC: 0UT74ZZ Resection of Bilateral Fallopian Tubes, Percutaneous Endoscopic Approach (ICD-10-PCS; CPT 58661; principal; 2023-11-24 07:45)
DX: Z30.2 Encounter for sterilization (principal); N73.6 Female pelvic peritoneal adhesions (postinfective)
CPT/HCPCS: 58661; J0136; J0171; J0330; J1100; J1885; J2405; J2704; J3010